=== PATIENT | female | born 1980 | race Caucasian/White ===

== ENCOUNTER 2025-08-24 13:04 | Outpatient (REF) | payer OTHER, SELFPAY ==
--- NOTE | 2025-08-24 | EMG_ITS ---
Chief complaint: Right hand numbness, pain and swelling Reason for referral: Evaluate for Carpal Tunnel Syndrome or ulnar neuropathy Referred by: Dr. Roa Procedure done: Right upper extremity NCS/EMG Precautions and/or limitations: None Czech speaking, seen with ear flap binder. The limb temperature was monitored continuously and remained between 32-36 degrees C during the performance of the NCS. Nerve Conduction Studies Anti Sensory Summary Table ?Stim Site NR Onset (ms) Norm Onset (ms) Peak (ms) Norm Peak (ms) O-P Amp (?V) Norm O-P Amp Site1 Site2 Delta-0 (ms) Dist (cm) Lux (m/s) Norm Lux (m/s) Right Median Anti Sensory (2nd Digit) Wrist ? 2.3 3.1 <3.6 33.0 >10 Wrist 2nd Digit 2.3 14.0 61 Right Radial Anti Sensory (Thumb) Forearm ? 1.4 1.9 <3.1 18.4 Forearm Thumb 1.4 10.0 71 Right Ulnar Anti Sensory (5th Digit) Wrist ? 2.1 3.0 <3.7 22.2 >15.0 Wrist 5th Digit 2.1 14.0 67 Motor Summary Table ?Stim Site NR Onset (ms) Norm Onset (ms) O-P Amp (mV) Norm O-P Amp iAmp (mV) Amp (1st) (%) Site1 Site2 Delta-0 (ms) Dist (cm) Lux (m/s) Norm Lux (m/s) Right Median Motor (Abd Poll Brev) Wrist ? 3.3 <3.9 13.0 >4.5 14.4 100.0 Elbow Wrist 3.3 19.0 58 >45 Elbow ? 6.6 12.3 13.3 94.6 Right Ulnar Motor (Abd Dig Minimi) Wrist ? 2.7 <3.0 8.2 >5 10.4 100.0 B Elbow Wrist 2.8 18.5 66 >45 B Elbow ? 5.5 7.5 9.7 91.5 A Elbow B Elbow 1.1 10.0 91 >45 A Elbow ? 6.6 7.3 9.3 89.0 EMG ?Side Muscle Nerve Root Ins Act Fibs Psw Amp Dur Poly Recrt Int Pat Comment Right 1stDorInt Ulnar C8-T1 Nml Nml Nml Nml Nml 0 Nml Complete Right FlexCarRad Median C6-7 Nml Nml Nml Nml Nml 0 Nml Complete Right Biceps Musculocut C5-6 Nml Nml Nml Nml Nml 0 Nml Complete Right Triceps Radial C6-7-8 Nml Nml Nml Nml Nml 0 Nml Complete Right Deltoid Axillary C5-6 Nml Nml Nml Nml Nml 0 Nml Complete FINDINGS: All motor and sensory nerves tested showed normal latencies, amplitudes and conduction velocities. Concentric needle EMG was performed in selected muscles of the right upper extremity. Study did not reveal signs of electric abnormalities as shown in the table above. IMPRESSION: 1. This is a normal study. 2. There is no electrodiagnostic evidence for median neuropathy, ulnar neuropathy, brachial plexopathy, or cervical radiculopathy. Thank you for your kind referral. Donna Arizmendi MD, NORM Board Certified, [place] Board [employer] and Rehabilitation (ABPMR) Board Certified, [place] Board of Electrodiagnostic Medicine (ABEM) [place] [id number] [facility]
--- OUTSIDE RECORDS SUMMARY | 2025-08-24 15:14 | XMS_ITS | Clinical Summary ---
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 Social History Tobacco Use Types Packs/Day Years Used Date Smoking Tobacco: Never Assessed Social Connections Answer Date Recorded Connectedness 0 07/04/2024 Financial Resource Strain Answer Date R ecorded Financial Resource Strain 0 2023 Stress Answer Date Recorded Stress 0 05/02/2024 Physical Activity Answer Date Recorded Physical Activity 0 05/02/2024 Food Insecurity Answer Date Recorded Food 0 07/13/2024 Transportation Needs Answer Date Record ed Transportation 0 05/02/2024 Housing Stability Answer Date Recorded Housing 0 05/02/2024 Safety and Environment Answer Date Jimbo rded Safety 0 05/02/2024 Utilities Answer Date Recorded Utilities 0 05/02/2024 Employment Answer Date Recorded Stress 0 07/04/2024 Comments Unknown Sex and Gender Information Value Date Recorded Sex Assigned at Not on file Legal Sex Female 7:25 AM PDT Gender Identity Not on file Sexual Orientation Not on file Plan of Treatment Health Maintenance Due Date Last Done Comments Anxiety Screening 1979 Diabetes Screening 1979 HPV Screening (self-collect) 1979 HPV Screening 1979 Hepatitis C Screening 1979 Lipid Screening 1979 Pap + HPV 1979 Tobacco Screening 1979 HIV Screening 1994 Relationship Safety Screening/Counseling 1994 Hypertension Screening (#1) 1997 Imm-DTaP/Tdap/Td (1 - Tdap) 1998 Imm-Hepatitis A (1 of 2 - Risk 2-dose series) 10/13/19 98 Imm-Hepatitis B (1 of 3 - 19+ 3-dose series) 8 Cervical Cancer Screening 2000 Pap Smear 2000 Imm-HPV (1 - 3-dose SCDM series) 2006 Breast Cancer Screening (Mammogram) 2019 CT Colonography 2024 Colonoscopy 2024 Colorectal Cancer Screening 2024 FIT/gFOBT 2024 Fecal DNA 2024 Flexible Sigmoidoscopy 2024 Alcohol and Drug Screen 10/18/2024 Depression Annual Screen 10/18/2024 [id number] ( season) 2025 Imm-Influenza (#1) 2025 Cervical Ablation/Cold-Knife Conization Discontinued Cervical Cryotherapy Discontinued Colposcopy Discontinued Excision/Leep Discontinued HPV Genotyping Discontinued Vaginal Pap Discontinued Vulvoscopy Discontinued
== END 2025-08-24 13:05 | disposition home or self-care (01) ==
LOC: HO.NEURO 13:04
DX: G56.01 Carpal tunnel syndrome, right upper limb (principal); R20.0 Anesthesia of skin; M79.641 Pain in right hand; M79.89 Other specified soft tissue disorders
CPT/HCPCS: 95885; 95909

== ENCOUNTER → 2025-08-24 13:10 | Outpatient (BNV) | payer OTHER, SELFPAY | PROVIDERS: Visit Provider Physical Medicine & Rehabilitation | DX: R20.0 Anesthesia of skin (principal); R20.2 Paresthesia of skin | CPT/HCPCS: 95886; 95909 ==